=== PATIENT | female | born 1960 | race Caucasian/White ===

== ENCOUNTER 2019-09-03 08:59 | Emergency (ER) | payer MEDICAID ==
[~2019-09-03] VITALS: Ht 157.5 cm; Wt 77.1 kg
[2019-09-03 09:20] VITALS: BP 174/86
== END 2019-09-03 09:55 | disposition home or self-care (01) ==
LOC: ER 08:59
DX: J20.9 Acute bronchitis, unspecified (principal); E11.9 Type 2 diabetes mellitus without complications; I10 Essential (primary) hypertension; F17.210 Nicotine dependence, cigarettes, uncomplicated; Z88.0 Allergy status to penicillin